=== PATIENT | female | born 1985 | race Caucasian/White ===

== ENCOUNTER 2022-01-06 01:56 | Inpatient (IN) | payer MEDICAID ==
[~2022-01-06] VITALS: Ht 162.6 cm; Wt 86.4 kg
[2022-01-06] MEDS ORDERED: HYDR-4808 PO (02:20)
[2022-01-06] MEDS ORDERED: ZIPR20CA38 PO (02:20)
[2022-01-06] MEDS ORDERED: LITH300C3 PO (02:20)
[2022-01-06 02:43] LABS: COVID AG,FIA SOURCE NASAL SWAB
[2022-01-06 02:43] LABS: BASOPHILS % (AUTO) 1.2 % (0.0-2.0); EOSINOPHILS % (AUTO) 1.4 % (1.0-6.0); HEMATOCRIT 42.8 % (36-46); HEMOGLOBIN 14.4 g/dL (12.0-16.0); LYMPHOCYTES # (AUTO) 3.7 K/uL (1.0-4.8); LYMPHOCYTES % (AUTO) 40.4 % (22.0-44.0); MEAN CORPUSCULAR HEMOGLOBIN 29.7 pg (26.0-34.0); MEAN CORPUSCULAR HGB CONC 33.7 G/dL (31.0-37.0); MEAN CORPUSCULAR VOLUME 88 fL (80-100); MONOCYTES # (AUTO) 0.7 K/uL (0.1-1.0); MONOCYTES % (AUTO) 7.9 % (2.0-9.0); NEUTROPHILS # (AUTO) 4.6 K/uL (1.8-7.7); NEUTROPHILS % (AUTO) 49.1 % (40.0-70.0); PLATELET COUNT (AUTO) 224 K/uL (150-450); RED BLOOD CELL COUNT(AUTO) 4.85 MIL/uL (4.00-5.20)
[2022-01-06 02:53] LABS: ANION GAP 14 mmol/L (8-16); CALCIUM, TOTAL 9.1 mg/dL (8.8-10.5); CARBON DIOXIDE 26 mmol/L (22-29); CHLORIDE 102 mmol/L (98-107); CREATININE 0.82 mg/dL (0.60-1.30); GLUCOSE,RANDOM 120 mg/dL (70-110); POTASSIUM 3.7 mmol/L (3.5-5.1); SODIUM SERUM 142 mmol/L (136-145); UREA NITROGEN, BLOOD 11 mg/dL (7-18)
[2022-01-06 02:55] LABS: GLOMERULAR FILTR. RATE CALC > 60 mL/min (>60)
[2022-01-06 03:10] LABS: ALANINE AMINOTRANSFERASE 25 U/L (12-78); ALBUMIN 4.2 g/dL (3.4-5.0); ALKALINE PHOSPHATASE 83 U/L (46-116); ASPARTATE AMINOTRANSFERASE 21 U/L (15-37); BILIRUBIN,TOTAL 0.3 mg/dL (0.1-1.0); HCG,QUANTITATIVE < 1 mIU/mL (0-6); TOTAL PROTEIN, SERUM 7.2 g/dL (6.4-8.2)
[2022-01-06] MEDS ORDERED: ZOLPIDEM TARTRATE 10 MG TABLET PO PRN (03:45)
[2022-01-06] MEDS: LORazepam 2 MG TABLET PO PRN ×2 (04:21→17:57)
[2022-01-06] MEDS ORDERED: LOPERAMIDE HCL 2 MG CAPSULE PO PRN (12:00)
[2022-01-06] MEDS ORDERED: MAGNESIUM HYDROXIDE SUSPENSION 30 ML UDCUP PO PRN (12:00)
[2022-01-06] MEDS ORDERED: PETROLATUM,WHITE 28 GM JELLY TP PRN (12:00)
[2022-01-06] MEDS ORDERED: ONDANSETRON HCL 4 MG TABLET PO PRN (12:00)
[2022-01-06] MEDS ORDERED: ACETAMINOPHEN 325 MG TABLET PO PRN (12:00)
[2022-01-06] MEDS ORDERED: ALBUTEROL SULFATE HFA 90 MCG/PUFF 8 GM INHALER IH PRN (12:00)
[2022-01-06] MEDS ORDERED: MAG HYDROX/AL HYDROX/SIMETH ES 30 ML SUSPENSION UDCUP PO PRN (12:00)
[2022-01-06] MEDS ORDERED: IBUPROFEN 400 MG TABLET PO PRN (12:00)
[2022-01-06] MEDS ORDERED: CloNIDine HCL 0.1 MG TABLET PO PRN (12:00)
[2022-01-06] MEDS ORDERED: DOCUSATE SODIUM 100 MG CAPSULE PO PRN (12:00)
[2022-01-06] MEDS ORDERED: GuaiFENesin/D-METHORPHAN [SUGAR-FREE] 200-20MG/10 ML SYRUP UDCUP PO PRN (12:00)
[2022-01-06] MEDS: LITHIUM CARBONATE 300 MG CAPSULE PO SCH (14:08)
[2022-01-06 17:55] VITALS: BP 109/72
[2022-01-06] MEDS: ZIPRASIDONE HCL 40 MG CAPSULE PO SCH (17:57)
[2022-01-07] MEDS: LITHIUM CARBONATE 300 MG CAPSULE PO SCH (08:42)
[2022-01-07 08:53] VITALS: BP 113/77
[2022-01-07] MEDS: NICOTINE 14 MG/24 HOUR PATCH TD PRN (12:14)
[2022-01-07] MEDS: LORazepam 2 MG TABLET PO PRN ×2 (12:14→18:10)
[2022-01-07 16:05] VITALS: BP 114/75
[2022-01-07] MEDS: ZIPRASIDONE HCL 40 MG CAPSULE PO SCH (16:24)
[2022-01-08 08:04] VITALS: BP 128/82
[2022-01-08] MEDS: NICOTINE 14 MG/24 HOUR PATCH TD PRN (08:07)
[2022-01-08] MEDS: OLANZapine 5 MG RAPDIS TABLET PO PRN (08:07)
[2022-01-08] MEDS: LORazepam 2 MG TABLET PO PRN ×2 (08:07→16:45)
[2022-01-08] MEDS: LITHIUM CARBONATE 300 MG CAPSULE PO SCH (08:07)
[2022-01-08] MEDS: NICOTINE POLACRILEX 2 MG LOZENGE PO PRN (12:09)
[2022-01-08 16:14] VITALS: BP 127/91
[2022-01-08] MEDS: ZIPRASIDONE HCL 40 MG CAPSULE PO SCH (16:44)
[2022-01-09 08:01] VITALS: BP 151/86
[2022-01-09] MEDS: LITHIUM CARBONATE 300 MG CAPSULE PO SCH (08:05)
[2022-01-09] MEDS: OLANZapine 5 MG RAPDIS TABLET PO PRN (08:05)
[2022-01-09] MEDS: LORazepam 2 MG TABLET PO PRN (08:05)
[2022-01-09] MEDS: NICOTINE POLACRILEX 2 MG LOZENGE PO PRN (08:06)
[2022-01-09] MEDS ORDERED: LITH300C3 PO (11:47)
[2022-01-09] MEDS ORDERED: ZIPR40CA38 PO (11:47)
== END 2022-01-09 15:05 | disposition home or self-care (01) | DRG 750 ==
LOC: EMS 01:57 → 3EC 03:46
PROVIDERS: ADMIT Psychiatry & Neurology Child & Adolescent Psychiatry; ATTEND Psychiatry & Neurology Child & Adolescent Psychiatry
DX: F20.9 Schizophrenia, unspecified (principal); R45.851 Suicidal ideations; E66.3 Overweight; F31.9 Bipolar disorder, unspecified; F43.10 Post-traumatic stress disorder, unspecified; G47.00 Insomnia, unspecified; Z87.891 Personal history of nicotine dependence; Z91.51 Personal history of suicidal behavior; Z88.8 Allergy status to other drugs, medicaments and biological substances; R73.9 Hyperglycemia, unspecified; Z20.822 Contact with and (suspected) exposure to COVID-19; Z68.32 Body mass index [BMI] 32.0-32.9, adult
CPT/HCPCS: 80053; 80178; 84702; 85025; 87081; 99285; G0480

== ENCOUNTER 2024-08-08 16:34 | Emergency (ER) | payer MEDICAID ==
[~2024-08-08] VITALS: Ht 160 cm; Wt 81.0 kg
[~2024-08-08 16:34] MED LIST: LITH300C3 PO; ZIPR40CA38 PO
[2024-08-08 16:37] VITALS: TEMP 98.1
[2024-08-08] MEDS ORDERED: OLAN2.5T78 PO (17:13)
[2024-08-08] MEDS ORDERED: GABA-1181 PO (17:13)
[2024-08-08] MEDS ORDERED: ARIP10TA38 PO (17:13)
[2024-08-08 17:14] VITALS: BP 126/84; PULSE 84; RESP 16; O2SAT 99
== END 2024-08-08 17:19 | disposition home or self-care (01) ==
LOC: EMS 16:37
DX: F20.9 Schizophrenia, unspecified (principal); F17.210 Nicotine dependence, cigarettes, uncomplicated; Z76.0 Encounter for issue of repeat prescription; Z91.148 Patient's other noncompliance with medication regimen for other reason; Z79.899 Other long term (current) drug therapy
CPT/HCPCS: 99281; Z7502